=== PATIENT | female | born 1940 | race Caucasian/White ===

== ENCOUNTER 2020-12-12 08:10 | Day surgery (SDC) | payer OTHER, SELFPAY ==
[~2020-12-12] VITALS: Ht 160 cm; Wt 66.2 kg
[~2020-12-12 08:10] MED LIST: CEFAZOLIN SOD 1 GM in D5W 50 ML IV ONE
[2020-12-12] MEDS ORDERED: GLYCOPYRROLATE 0.2 MG/ML VIAL IJ ONE (09:51)
[2020-12-12] MEDS ORDERED: MIDAZOLAM HCL 5 MG/5 ML VIAL IVP ONE (09:51)
[2020-12-12] MEDS ORDERED: PROPOFOL 200MG/ 20ML VIAL (DIPRIVAN) IV ONE (09:51)
[2020-12-12] MEDS ORDERED: NS IRRIG SOLN 1000 ML IR ONE (09:51)
[2020-12-12] MEDS ORDERED: LIDOCAINE 1% 10 MG/ML, 20 ML MDV INJ ONE (09:51)
[2020-12-12] MEDS ORDERED: DEXAMETHASONE SOD PHOSPHATE 4 MG/ML VIAL IVP ONE (09:51)
[2020-12-12] MEDS ORDERED: fentaNYL CITRATE/PF 100 MCG/2 ML AMP IVP ONE (09:51)
[2020-12-12] MEDS ORDERED: ONDANSETRON HCL 4 MG/2 ML VIAL IVP ONE (09:51)
[2020-12-12] MEDS ORDERED: LR 500 ML IV.SOLN IV ONE (09:51)
[2020-12-12] MEDS ORDERED: SEVOFLURANE 15 MIN GAS INH ONE (09:51)
[2020-12-12] MEDS ORDERED: ONDANSETRON HCL 4 MG/2 ML VIAL IVP PRN (10:30)
[2020-12-12] MEDS ORDERED: hydrALAZINE HCL 20 MG/ML VIAL IVP PRN (10:30)
[2020-12-12] MEDS ORDERED: HYDROmorphone 1 INJ. 1 MG/ML CARTRIDGE IVP PRN ×3 (10:30)
[2020-12-12] MEDS ORDERED: MEPERIDINE HCL/PF 25 MG/ML DISP.SYRIN IVP PRN (10:30)
[2020-12-12] MEDS ORDERED: METOCLOPRAMIDE HCL 10 MG/2 ML VIAL IVP PRN (10:30)
[2020-12-12] MEDS ORDERED: LR 1,000 ML IV SCH (10:30)
[2020-12-12] MEDS ORDERED: D5/0.45 NS 1,000 ML IV SCH (11:30)
[2020-12-12 12:37] VITALS: BP_SYST 156
== END 2020-12-12 13:00 | disposition home or self-care (01) ==
LOC: SDS 08:10 → SMU 08:13 → SDS 13:00
PROVIDERS: ATTEND Colon & Rectal Surgery
DX: L02.416 Cutaneous abscess of left lower limb (principal); I10 Essential (primary) hypertension; F32.9 Major depressive disorder, single episode, unspecified; M81.0 Age-related osteoporosis without current pathological fracture; G47.00 Insomnia, unspecified
CPT/HCPCS: 10061; 36415; 64447; 76942 ×2; 82962; 87426; J0690; J1100; J2001; J2250; J2405; J2704; J3010; J3490; J7060; J7120